=== PATIENT | male | born 1980 | race Hispanic/Latino ===

== ENCOUNTER 2025-06-26 14:38 | Outpatient (CLI) | payer OTHER, SELFPAY ==
[2025-06-26 16:36] VITALS: BP 113/78; PULSE 68; RESP 16; TEMP 36.8; O2SAT 96
[2025-06-26 16:45] VITALS: BP 133/80; PULSE 66; RESP 18; O2SAT 100
[2025-06-26] MEDS: MIDAZOLAM 2 MG/2 ML VIAL IV (16:49)
[2025-06-26 16:50] VITALS: BP 121/76; PULSE 78; RESP 19; O2SAT 99
[2025-06-26 16:55] VITALS: BP 123/80; PULSE 71; RESP 19; O2SAT 99
--- NOTE | 2025-06-26 17:04 | PM.PROC.IR.1 ---
Date/Time/Diagnoses Date of procedure: 06/26/25 Time of procedure: 17:04 Pre-procedure diagnosis: 1. FACET ARTHROPATHY Post-procedure diagnosis: same Procedure Notes Procedure: 1. Left L4, L5 and S1 MB BLOCKS LA Indications: Efren is referred for treatment of Left Axial LBP. Physician: Jasen Reynoso Total Fluoroscopy time (seconds): 6 Total sedation minutes: 10 Complications: none Procedure in detail & Post-procedure care: DESCRIPTION OF PROCEDURE Fluoroscopically guided, contrast-controlled left L4, L5 and S1 medial branch blocks with 0.5cc of 0.5% Marcaine. Following review of allergy and review of potential side effects and complications, including, but not necessarily limited to, infection, allergic reaction, local tissue breakdown, nerve injury, paralysis, stroke and possible , the patient indicated that the patient understood and agreed to proceed. An informed consent document was signed by the patient, witnessed by a nurse, and placed in the patient's chart. After review of previous anaesthesic history and IV conscious sedation the patient was deemed safe to proceed with today?s procedure with IV conscious sedation as ASA class II designation. Safety time-out was performed to confirm patient ID, procedure to be performed and site of procedure. IV sedation was accomplished with a combination of 2mg of Versed was administered by the RN after DO order, titrated to patient comfort during the course of the procedure while the patient remained responsive to all verbal commands. In the prone position, following sterile prep and drape of the lumbar region, the left L4, L5 and S1 anatomical location of the medial branch of the dorsal ramus was identified fluoroscopically. Subsequently an anesthetic skin wheal using 1% lidocaine solution was initiated at each of the anatomical spots. Subsequently then a 22-gauge 3.5-inch spinal needle was atraumatically introduced and advanced under fluoroscopic guidance at each of the corresponding sites at the left L4, L5 and S1 MB. After negative aspiration, 0.2cc of Isovue 200 was injected, confirming placement without vascular or intrathecal uptake. Subsequently then 0.5cc of 0.5% Marcaine solution was injected at each of the corresponding sites at the left L4, L5 and S1 medial branch locations. The patient tolerated the procedure well without signs or symptoms of complications. The patient tolerated the procedure well without signs or symptoms of complications prior to transfer to the recovery area continued monitoring without incident. Post-procedure, the patient was monitored initiating provocative activities to measure the amount of relief from block of the facetogenic pain. The patient reported a VAS of 7 prior to the procedure and a post-procedure VAS of 1. It has been a pleasure to assist in the diagnostic and therapeutic care of your patient. POST OP INSTRUCTIONS The patient was provided with a Pain Log to complete over the next several hours and subsequent days prior to the patient's follow up with the ordering physician. If the patient has office cleaner relief to the solution applied, then they may be a candidate for medial branch rhizotomy. The patient is aware, was provided, once again, with a Pain Log and will follow up with the referring physician for review and clinical correlation.
[2025-06-26 17:05] VITALS: BP 130/72; PULSE 71; RESP 16; O2SAT 97
[2025-06-26 17:10] VITALS: BP 121/71; PULSE 80; RESP 16; O2SAT 97
== END 2025-06-26 17:24 | disposition home or self-care (01) ==
LOC: RAD 14:39
PROVIDERS: Referring Provider Physical Medicine & Rehabilitation; Visit Provider Physical Medicine & Rehabilitation
DX: M47.816 Spondylosis without myelopathy or radiculopathy, lumbar region (principal); M47.817 Spondylosis without myelopathy or radiculopathy, lumbosacral region
CPT/HCPCS: 64493; 64494; 99152; J2250